=== PATIENT | male | born 1995 | race Caucasian/White ===

== ENCOUNTER → 2024-08-16 | Outpatient (CLI) | payer OTHER ==
[2024-08-16] VITALS (10 sets, daily range): BP systolic 99–117; BP diastolic 59–78; PULSE 66–87; TEMP 98.7
[~2024-08-16] VITALS: Ht 175.3 cm; Wt 101.1 kg
[~2024-08-16] MED LIST: BUSPAR DIVIDOSE15 MG PO; INDERAL 20MG20 MG PO; LEXAPRO20 MG PO; Midazolam 2 MG/2 ML VIAL IV SCH; ROBINUL FORTE2 MG PO; SEROQUEL 2525 MG/TAB PO; VYVANSE30 MG PO; fentaNYL 50 MCG/ML 2 ML VIAL IV SCH
[2024-08-16 07:21] LABS: HEMATOCRIT 44.5 % (42.0-52.0); HEMOGLOBIN 15.8 g/dl (13.5-18.0); MEAN CELL VOLUME 85 fl (80.0-100.0); MEAN CORPUSCULAR HEMOGLOBIN 30 pg (27-31); MEAN CORPUSCULAR HGB CONC 36 g/dl (33.0-37.0); MEAN PLATELET VOLUME 9.4 fl (7.4-10.4); PLATELET COUNT 209 K/mm3 (130-400); RED BLOOD COUNT 5.22 M/mm3 (4.20-5.60); REDCELL DISTRIBUTION WIDTH-CV 13.2 % (11.5-14.5)
--- NOTE | 2024-08-16 08:18 | NUR ---
SPECIMEN COLLECTED AT 0800.
--- NOTE | 2024-08-16 08:55 | NUR ---
PATIENT COMPLETED HIS RECOVERY PERIOD WITHOUT ANY ISSUES. PATIENT IS AWAKE AND ALERT AND DENIES ANY PAIN AND THE BANDAGE IS CLEAN, DRY, AND INTACT. ESCORTED PATIENT TO PATIENT ENTRANCE WITH ALL OF HIS BELONGINGS. PATIENT ABLE TO GET INTO FRONT PASSENGER SEAT OF HIS RIDE WITHOUT ANY ISSUES. ALL NEEDS MET.
[2024-08-16 09:26] LABS: BAND 3 % (0-10); EOSINOPHIL 12 % (0-4); LYMPHOCYTE 51 % (20.0-51.0); NEUTROPHILS 4 % (42.0-75.2)
[2024-08-16 09:27] LABS: PLATELET ESTIMATE NORMAL (NORMAL)
== END ==
LOC: COL.RAD 06:29
PROVIDERS: Internal Medicine
DX: D70.9 Neutropenia, unspecified (principal)
CPT/HCPCS: J2250; J3010